=== PATIENT | male | born 1980 | race Caucasian/White ===

== ENCOUNTER 2019-07-13 16:03 | Emergency (ER) | payer OTHER ==
--- NOTE | 2019-07-13 16:30 | EDM.PDOC ---
ED HPI GENERAL MEDICAL PROBLEM - General Chief Complaint: Lower Extremity Injury/Pain Stated Complaint: INJURED RT ANKLE Time Seen by Provider: 07/13/19 16:24 Source of Information: Reports: Patient History Limitations: Reports: No Limitations - History of Present Illness INITIAL COMMENTS - FREE TEXT/NARRATIVE: Patient is a 38-year-old male who is complaining of having right ankle pain after he twisted the ankle an hour prior to arrival. Patient is able ambulate but states that is painful when he does so. He denies any other injuries and is taking nothing for his pain symptoms. He denies previous injuring this ankle. He has no other complaints. Onset: Today Location: Reports: Lower Extremity, Right Quality: Reports: Ache Severity: Moderate Improves with: Reports: Rest Worsens with: Reports: Movement Context: Reports: Trauma Associated Symptoms: Reports: No Other Symptoms - Related Data Allergies Allergy/AdvReac Type Severity Reaction Status Date / Time No Known Allergies Allergy Verified 07/13/19 16:18 Home Meds: Home Meds Losartan [Cozaar] 100 mg PO DAILY 07/13/19 [History] Review of Systems - Review of Systems Review Of Systems: Comprehensive ROS is negative, except as noted in HPI. ED EXAM, GENERAL - Physical Exam Exam: See Below Free Text/Narrative:: Exam: See Below Exam Limited By: No Limitations Head: Atraumatic Neck: Normal Inspection. Respiratory/Chest: No Respiratory Distress Back Exam: Normal Inspection. No: CVA Tenderness (R) Extremities: Mild swelling of lateral malleolus on his right ankle. There is no ligament instability. No: No Pedal Edema Neurological: Alert, Oriented, Normal Cognition Psychiatric: Normal Affect Skin Exam: Warm Lymphatic: No Adenopathy Course - Vital Signs Text/Narrative:: X-ray shows no sign of any fracture. I am placing patient in an Aircast splint and offer him crutches if needed. Elevation ice while ankle is swollen follow- up with orthopedic provider or PCP if not improving return to ER if worse. Ibuprofen as needed for pain. Last Recorded V/S: Last Vital Signs Temp 35.5 C 07/13/19 16:19 Pulse 84 07/13/19 16:19 Resp 16 07/13/19 16:19 BP 153/99 H 07/13/19 16:19 Pulse Ox 96 07/13/19 16:19 - Orders/Labs/Meds Orders: Active Orders 24 hr Category Date Time Status Ankle Min 3V Rt [CR] Stat Exams 07/13/19 16:26 Taken Departure - Departure Time of Disposition: 16:44 Disposition: Home, Self-Care 01 Condition: Good Clinical Impression: Sprain of ankle, right - Discharge Information Instructions: How to Use a Stirrup Ankle Brace, [id number] Referrals: PCP,Not In Area [Primary Care Provider] - Forms: ED Department Discharge Additional Instructions: Ice and elevation while swollen. Ibuprofen as needed for pain. Aircast splint as needed. Crutches if not improving. Return to ER if worse. Follow-up with PCP if not improving. Care Plan Goals: The following information is given to patients seen in the emergency department who are being discharged to home. This information is to outline your options for follow-up care. We provide all patients seen in our emergency department with a follow-up referral. The need for follow-up, as well as the timing and circumstances, are variable depending upon the specifics of your emergency department visit. If you don't have a primary care physician on staff, we will provide you with a referral. We always advise you to contact your personal physician following an emergency department visit to inform them of the circumstance of the visit and for follow-up with them and/or the need for any referrals to a consulting specialist. The emergency department will also refer you to a specialist when appropriate. This referral assures that you have the opportunity for follow-up care with a specialist. All of these measure are taken in an effort to provide you with optimal care, which includes your follow-up. Under all circumstances we always encourage you to contact your private physician who remains a resource for coordinating your care. When calling for follow-up care, please make the office aware that this follow-up is from your recent emergency room visit. If for any reason you are refused follow-up, please contact the [facility] Emergency Department at and asked to speak to the emergency department charge nurse. Sepsis Event Note - Evaluation Sepsis Screening Result: No Definite Risk - Focused Exam Vital Signs: Vital Signs Temp Pulse Resp BP Pulse Ox 07/13/19 16:19 35.5 C 84 16 153/99 H 96 Date Exam was Performed: 07/13/19 Time Exam was Performed: 16:42 - My Orders Last 24 Hours: My Active Orders 07/13/19 16:26 Ankle Min 3V Rt [CR] Stat - Assessment/Plan Last 24 Hours: My Active Orders 07/13/19 16:26 Ankle Min 3V Rt [CR] Stat
--- NOTE | 2019-07-13 16:53 | CR ---
Right ankle: 3 views of the right ankle were obtained. Lucent line is noted on the oblique view within the lateral malleolus believed to be due to so-called Mach effect from underlying tibia. No acute fracture, dislocation or other acute abnormality is seen. Small plantar spur is noted. Impression: 1. Small plantar spur. 2. Nothing acute is appreciated on right ankle exam. Diagnostic code #2 This report was dictated in [place] Standard Time
== END 2019-07-13 17:20 | disposition home or self-care (01) ==
LOC: MW.ED 16:03
DX: S93.401A Sprain of unspecified ligament of right ankle, initial encounter (principal); X50.1XXA Overexertion from prolonged static or awkward postures, initial encounter; Z79.899 Other long term (current) drug therapy
CPT/HCPCS: 73610-26-RT; 73610-RT; 99283; 99283-25